=== PATIENT | female | born 2000 | race Caucasian/White ===

== ENCOUNTER 2022-04-18 11:04 | Emergency (ER) | payer BC | END 2022-04-18 13:30 | disposition home or self-care (01) | LOC: JD.ED 11:04 | DX: S16.1XXA Strain of muscle, fascia and tendon at neck level, initial encounter (principal); S20.224A Contusion of middle back wall of thorax, initial encounter; S40.211A Abrasion of right shoulder, initial encounter; V80.010A Animal-rider injured by fall from or being thrown from horse in noncollision accident, initial encounter | CPT/HCPCS: 71046; 71046-26; 72040; 72040-26; 99282; 99283-25 ==